=== PATIENT | female | born 1990 | race Caucasian/White ===

== ENCOUNTER 2018-02-17 13:39 | Emergency (ER) | payer OTHER ==
[~2018-02-17] VITALS: Ht 167.6 cm; Wt 54.1 kg
[~2018-02-17 13:39] MED LIST: CARAFATE1 GM PO; CARAFATE100 MG/ML PO; CELEXA40 MG PO; CITALOPRAM HBR40 MG PO; ESOMEPRAZOLE MA40 MG PO; ESTROSTEP FE-21 EACH PO; LEXAPRO10 MG PO; LORTAB 5-325 M1 EACH PO; MOTRIN800 MG PO; NEXIUM40 MG PO; ONDANSETRON ODT8 MG PO; PEPCID20 MG PO; PERCOCET 5/31 TABLET PO; PRENATAL TABLE1 EAC3 PO; PRILOSEC40 MG PO; PROMETHAZINE HC25 M1 PO; PROTONIX40 MG PO; SUCRALFATE1 GM PO; ZANTAC300 MG PO
[2018-02-17 14:02] LABS: HEMATOCRIT 36.6 % (36.0-46.0); HEMOGLOBIN 13.1 G/DL (11.9-15.5); MCH 30.7 PG (29.0-34.0); MCHC 35.8 G/DL (30.0-36.0); MCV 85.7 FL (83-99); PLATELET COUNT 171 K/uL (156-360); RED BLOOD COUNT 4.27 M/uL (3.80-5.20); WHITE BLOOD COUNT 5.3 K/uL (4.1-10.2)
[2018-02-17 14:13] LABS: ALBUMIN 4.5 g/dL (3.2-4.8); CHLORIDE 108 mEq/L (99-109); POTASSIUM 4.6 mEq/L (3.7-5.4); SODIUM 138 mEq/L (136-147)
[2018-02-17 14:15] LABS: GLUCOSE 77 mg/dL (70-99)
[2018-02-17 14:17] LABS: TOTAL BILIRUBIN 0.8 mg/dL (0.0-1.0)
[2018-02-17 14:19] LABS: ALKALINE PHOSPHATASE 65 IU/L (3-129); CREATININE 0.7 mg/dL (0.6-1.3); GFR ESTIMATE (CALCULATED) > 59 mL/min/
[2018-02-17 14:20] LABS: UREA NITROGEN (BUN) 12 mg/dL (9-23)
[2018-02-17 14:21] LABS: AST (GOT) 11 IU/L (2-34)
[2018-02-17 14:22] LABS: ALT (GPT) 10 IU/L (3-49); LIPASE 25 U/L (1.0-51.0)
[2018-02-17 14:52] LABS: QUANTITATIVE HCG 47690.3 MIU/ML
[2018-02-17 16:41] LABS: APPEARANCE CLEAR ((CLEAR)); BILIRUBIN NEGATIVE; BLOOD NEGATIVE; COLOR YELLOW ((YELLOW)); GLUCOSE (STRIP) NEGATIVE; KETONES NEGATIVE; LEUKOCYTES NEGATIVE; NITRITE NEGATIVE; PROTEIN (STRIP) NEGATIVE; SPECIFIC GRAVITY 1.023 (1.000-1.030); UCUL ADDED? NO; UROBILINOGEN 0.2 MG/DL (0.2-1.0)
[2018-02-17] MEDS ORDERED: ZOFRAN ODT4 MG PO (16:43)
[2018-02-17 16:54] VITALS: BP 112/68
== END 2018-02-17 16:56 | disposition home or self-care (01) ==
LOC: EME 13:39
DX: O26.899 Other specified pregnancy related conditions, unspecified trimester (principal); R11.0 Nausea; R53.81 Other malaise; O99.340 Other mental disorders complicating pregnancy, unspecified trimester; F41.9 Anxiety disorder, unspecified; Z87.19 Personal history of other diseases of the digestive system; Z3A.00 Weeks of gestation of pregnancy not specified
CPT/HCPCS: 80053; 81003; 83690; 84702; 85027; 99281; 99284